=== PATIENT | male | born 1965 | race African-American/Black ===

== ENCOUNTER 2020-05-05 12:00 | Emergency (ER) | payer MEDICAID ==
[~2020-05-05] VITALS: Ht 195.6 cm; Wt 88.5 kg
[2020-05-05 12:33] VITALS: BP 104/69; Ht 195.6 cm; Wt 88.5 kg
== END 2020-05-05 15:00 | disposition home or self-care (01) ==
LOC: ED 12:00
DX: J44.9 Chronic obstructive pulmonary disease, unspecified (principal); J45.909 Unspecified asthma, uncomplicated; Z98.890 Other specified postprocedural states; Z88.6 Allergy status to analgesic agent
CPT/HCPCS: J7512